=== PATIENT | male | born 1980 | race Caucasian/White ===

== ENCOUNTER 2017-07-04 15:32 | Emergency (ER) | payer OTHER ==
[2017-07-04 15:44] VITALS: BP 158/92
--- NOTE | 2017-07-04 15:53 | ED Physician Documentation ---
PD HPI LOWER EXT INJURY - Stated complaint Stated Complaint: R PINKY TOE INJ - Chief complaint Chief Complaint: Ext Problem - History obtained from History obtained from: Patient - History of Present Illness PD HPI LOW EXT INJURY LOCATION: Other (He was playing soccer with his son in the backyard, barefooted, his pinky toe when in a hole and it was deformed laterally. He reduced it himself but has persistent pain but declines pain medication.) Review of Systems Constitutional: reports: Reviewed and negative Cardiac: reports: Reviewed and negative Respiratory: reports: Reviewed and negative PD PAST MEDICAL HISTORY - Present Medications Home Medications: Ambulatory Orders Medication Instructions Recorded Confirmed No Known Home Medications [No 07/04/17 07/04/17 Known Home Medications] - Allergies Allergies/Adverse Reactions: Allergies Allergy/AdvReac Type Severity Reaction Status Date / Time Sulfa (Sulfonamide Allergy Unknown Verified 07/04/17 16:00 Antibiotics) PD ED PE NORMAL - Vitals Vital signs reviewed: Yes - General General: Alert and oriented X 3, No acute distress - Extremities Extremities: Other (Right pinky toe is quite tender and swollen but neurovascularly intact. There is no ecchymosis yet.) - Neuro Neuro: Alert and oriented X 3, Normal speech Results - Vitals Vitals: Vital Signs - 24 hr 07/04/17 15:38 Temperature 35.9 C L Heart Rate 83 Respiratory 16 Rate Blood Pressure 158/92 H O2 Saturation 98 Oxygen O2 Source Room air - Rads (name of study) R 5th toe Radiology: EMP read contemporaneously (prox phalanx frx) Departure - Departure Disposition: 01 Home, Self Care Clinical Impression: Fracture of proximal phalanx of toe of right foot Condition: Good Record reviewed to determine appropriate education?: Yes Instructions: ED Fx Toe Closed Comments: Av tape it and wear closed toed shoes as discussed, ibuprofen as needed for pain. Your blood pressure was elevated today on check into the emergency department. This does not mean that you have hypertension, it is a common phenomenon to come to the emergency department and have elevated blood pressure. I recommend that you see your primary care physician within the week to have it rechecked when you are feeling better. Discharge Date/Time: 07/04/17 16:20
--- NOTE | 2017-07-04 16:35 | XRAY Preliminary Report ---
Exam: XR TOE(S) RT IMPRESSION: Fracture fifth proximal phalanx. [facility] SITE ID: [id number]
--- NOTE | 2017-07-04 16:37 | XRAY Report ---
EXAM: RIGHT FIFTH TOE RADIOGRAPHY EXAM DATE: 07/04/2017 04:07 PM. CLINICAL HISTORY: Pain after injury while running today. COMPARISON: None. TECHNIQUE: 4 views. FINDINGS: Bones: Acute hairline oblique fracture proximal metadiaphysis fifth proximal phalanx. Joints: Normal. No subluxations. Soft Tissues: Edema at the fracture site. IMPRESSION: Fracture fifth proximal phalanx. [facility] Referring Provider Line: [phone] SITE ID: [id number]
== END 2017-07-04 16:20 | disposition home or self-care (01) ==
LOC: ED 15:32
DX: S92.511A Displaced fracture of proximal phalanx of right lesser toe(s), initial encounter for closed fracture (principal); W21.02XA Struck by soccer ball, initial encounter; Y93.66 Activity, soccer; Y92.096 Garden or yard of other non-institutional residence as the place of occurrence of the external cause; R03.0 Elevated blood-pressure reading, without diagnosis of hypertension
CPT/HCPCS: 73660; 99283

== ENCOUNTER 2018-05-13 16:05 | Emergency (ER) | payer OTHER ==
[2018-05-13 16:10] VITALS: BP 152/87
--- NOTE | 2018-05-13 17:10 | ED Physician Documentation ---
PD HPI UPPER EXT INJURY - Stated complaint Stated Complaint: LT FINGER PAIN - Chief complaint Chief Complaint: Ext Problem - History obtained from History obtained from: Patient - History of Present Illness Location: Left, Finger (middle finger dorsal PIP joint) Where injury occurred: Home Timing - onset: How many days ago (several) Timing - duration: Days (he had laceration to top of PIP joint and is now having redness and swelling locally without pain on etension of the finger.) Timing - details: Gradual onset Worsened by: Palpating Associated symptoms: No: Weakness, Numbness Similar symptoms before: Has not had sx before Review of Systems Constitutional: denies: Fever, Chills, Myalgias Nose: reports: Rhinorrhea / runny nose Throat: denies: Sore throat Cardiac: denies: Chest pain / pressure Skin: reports: Laceration (s) PD PAST MEDICAL HISTORY - Past Medical History Cardiovascular: None Respiratory: None Neuro: None Endocrine/Autoimmune: None GI: None : None HEENT: None Psych: None Musculoskeletal: None Derm: Eczema - Past Surgical History Past Surgical History: Yes - Present Medications Home Medications: Ambulatory Orders Medication Instructions Recorded Confirmed Doxycycline Hyclate 100 mg PO BID #20 capsule 05/13/18 Mupirocin 1 applic TP TID #15 g 05/13/18 - Allergies Allergies/Adverse Reactions: Allergies Allergy/AdvReac Type Severity Reaction Status Date / Time Sulfa (Sulfonamide Allergy Unknown Verified 05/13/18 16:10 Antibiotics) - Social History Does the pt smoke?: No Smoking Status: Never smoker Does the pt drink ETOH?: Yes ETOH Use: Beer Does the pt have substance abuse?: No - Immunizations Immunizations are current?: Yes - POLST Patient has POLST: No PD ED PE NORMAL - Vitals Vital signs reviewed: Yes - General General: Alert and oriented X 3, No acute distress, Well developed/nourished - Extremities Extremities: No deformity, No tenderness to palpate, Normal ROM s pain - Neuro Neuro: Alert and oriented X 3, No motor deficit, No sensory deficit, Other (dorsum of finger at [facility] got small puncture/laceration over the tendon herbie) Results - Vitals Vitals: Oxygen O2 Source Room air PD MEDICAL DECISION MAKING - ED course Complexity details: considered differential, d/w patient Departure - Departure Disposition: 01 Home, Self Care Clinical Impression: Infected finger laceration Qualifiers: Encounter type: initial encounter Qualified Code(s): S61.219A - Laceration without foreign body of unspecified finger without damage to nail, initial encounter Condition: Stable Record reviewed to determine appropriate education?: Yes Instructions: ED Staph Infec Abx Tx Only Follow-Up: [facility] [Provider Group] Prescriptions: Doxycycline Hyclate 100 mg PO BID #20 capsule Mupirocin 1 applic TP TID #15 g Comments: Soak the finger in warm water 2-3 times a day. Apply mupirocin topical antibiotic to the area. Ibuprofen or naproxen if needed for pains and inflammation. Use doxycycline oral antibiotic twice daily for a week. Recheck if not improved well over the next 2-3 days and return sooner if you have increasing redness or swelling or any extension of pain up into the back of the hand or forearm. Discharge Date/Time: 05/13/18 17:54
[2018-05-13] MEDS ORDERED: DOXYCYCLINE 100 MG TABLET PO STA (17:28)
[2018-05-13] MEDS ORDERED: NAPROXEN 250 MG TABLET PO STA (17:28)
== END 2018-05-13 17:54 | disposition home or self-care (01) ==
LOC: ED 16:05
DX: S61.213A Laceration without foreign body of left middle finger without damage to nail, initial encounter (principal); X58.XXXA Exposure to other specified factors, initial encounter; Y92.009 Unspecified place in unspecified non-institutional (private) residence as the place of occurrence of the external cause
CPT/HCPCS: 99283; A9270

== ENCOUNTER 2019-01-16 17:59 | Emergency (ER) | payer OTHER ==
[2019-01-16 18:10] VITALS: BP 156/111
--- NOTE | 2019-01-16 19:01 | XRAY Report ---
Reason: R shoulder pain s/p dropping a weight Procedure Date: 01/16/2019 Accession Number: [id number] / [id number] Procedure: XR - Shoulder 3 View RT CPT Code: Final Report FULL RESULT: EXAM: RIGHT SHOULDER RADIOGRAPHY EXAM DATE: 01/16/2019 06:25 PM. CLINICAL HISTORY: R shoulder pain s/p dropping a weight. COMPARISON: None. TECHNIQUE: 3 views. FINDINGS: Bones: Normal. No fracture or bone lesion. Joints: The glenohumeral and acromioclavicular joints are normal. Soft tissues: The visualized hemithorax is unremarkable. No soft tissue swelling. IMPRESSION: Negative right shoulder. [facility]
[2019-01-16] MEDS ORDERED: oxyCODONE 5 MG TABLET PO STA (19:45)
[2019-01-16] MEDS ORDERED: CYCLOBENZAPRINE 10 MG TABLET PO STA (19:46)
--- NOTE | 2019-01-16 19:48 | ED Physician Documentation ---
PD HPI UPPER EXT INJURY - Stated complaint Stated Complaint: RT SHOULDER INJ - Chief complaint Chief Complaint: Ext Problem - History obtained from History obtained from: Patient - History of Present Illness Location: Right, Shoulder Type of injury: Other (dropped a weight) Where injury occurred: Other (gym) Timing - onset: How many hours ago (several) Timing - duration: Hours Timing - details: Abrupt onset Pain level max: 8 Pain level now: 7 Improved by: Rest Worsened by: Moving, Palpating Associated symptoms: No: Weakness, Numbness, Tingling, Swelling Similar symptoms before: Has not had sx before Recently seen: Not recently seen - Additonal information Additional information: pt is right handed Review of Systems Constitutional: denies: Fever, Chills GI: denies: Nausea, Vomiting Skin: denies: Rash Musculoskeletal: denies: Neck pain, Back pain Neurologic: denies: Focal weakness, Numbness, Headache PD PAST MEDICAL HISTORY - Past Medical History Cardiovascular: None Respiratory: None Neuro: None Endocrine/Autoimmune: None GI: None : None HEENT: None Psych: None Musculoskeletal: None Derm: Eczema - Past Surgical History Past Surgical History: Yes - Present Medications Home Medications: Ambulatory Orders Medication Instructions Recorded Confirmed Doxycycline Hyclate 100 mg PO BID #20 capsule 05/13/18 Mupirocin 1 applic TP TID #15 g 05/13/18 Cyclobenzaprine [Flexeril] 10 mg PO TID PRN #20 tablet 01/16/19 Meloxicam [Mobic] 15 mg PO DAILY PRN #20 tablet 01/16/19 Oxycodone HCl/Acetaminophen 1 - 2 each PO Q6H PRN #14 tablet 01/16/19 [Percocet 5-325 mg Tablet] - Allergies Allergies/Adverse Reactions: Allergies Allergy/AdvReac Type Severity Reaction Status Date / Time Sulfa (Sulfonamide Allergy Unknown Verified 05/13/18 16:10 Antibiotics) - Social History Does the pt smoke?: No Smoking Status: Never smoker Does the pt drink ETOH?: Yes Does the pt have substance abuse?: No - Immunizations Immunizations are current?: Yes - POLST Patient has POLST: No PD ED PE NORMAL - Vitals Vital signs reviewed: Yes - General General: Alert and oriented X 3, No acute distress - HEENT HEENT: Moist mucous membranes - Derm Derm: Warm and dry - Extremities Extremities: Other (Limited range of motion of the right shoulder. Tender to palpation over the anterior aspect of the glenohumeral joint. Neurovascular intact including the axillary nerve. Pain especially with internal and external rotation. No deformity.) - Neuro Neuro: Alert and oriented X 3 Results - Vitals Vitals: Vital Signs - 24 hr 01/16/19 18:08 Temperature 36.9 C Heart Rate 88 Respiratory 18 Rate Blood Pressure 156/111 H O2 Saturation 98 Oxygen O2 Source Room air - Rads (name of study) R shoulder xray Radiology: Prelim report reviewed, EMP read contemporaneously, See rad report (normal) PD MEDICAL DECISION MAKING - ED course Complexity details: reviewed results, re-evaluated patient, considered differential, d/w patient ED course: Patient with right rotator cuff strain versus tear. Placed in a sling. We will have him obtain a shoulder brace for home. Will prescribe pain medication, NSAIDs and muscle relaxants. Patient counseled regarding signs and symptoms for which I believe and urgent re-evaluation would be necessary. Patient with good understanding of and agreement to plan and is comfortable going home at this time This document was made in part using voice recognition software. While efforts are made to proofread this document, sound alike and grammatical errors may o ccur. Departure - Departure Disposition: 01 Home, Self Care Clinical Impression: Rotator cuff strain Qualifiers: Encounter type: initial encounter Laterality: right Qualified Code(s): S46.011A - Strain of muscle(s) and tendon(s) of the rotator cuff of right shoulder, initial encounter Condition: Good Instructions: ED Tendinitis Rotator Cuff Follow-Up: LOUIE PAVON MD [Primary Care Provider] - Within 1 week Prescriptions: Cyclobenzaprine [Flexeril] 10 mg PO TID PRN #20 tablet PRN Reason: Spasms Meloxicam [Mobic] 15 mg PO DAILY PRN #20 tablet PRN Reason: pain Oxycodone HCl/Acetaminophen [Percocet 5-325 mg Tablet] 1 - 2 each PO Q6H PRN #14 tablet PRN Reason: pain Comments: Use the medications as needed. Return if you worsen. Follow-up with your doctor for further care. A shoulder brace also works well to help stabilize the joint. Your x-ray does not show any acute abnormalities. Continue to stretch the shoulder as shown tonight. Do not drink alcohol or drive while on narcotic pain medicine. Note that many narcotic pain relievers also contain tylenol/acetaminophen. Please ensure that your total dose of acetaminophen from all sources does not exceed 3 grams (3000mg) per day. You may constipated on this medication, take a stool softener such as "Colace" twice a day while you are on it. Also recommend a [id number] laxative such as senna or MiraLAX any day that you do not have a bowel movement. If you received narcotic pain medication in the emergency department, do not drive or operate machinery for the next 24 hours. Discharge Date/Time: 01/16/19 19:54
== END 2019-01-16 19:54 | disposition home or self-care (01) ==
LOC: ED 17:59
DX: S46.011A Strain of muscle(s) and tendon(s) of the rotator cuff of right shoulder, initial encounter (principal); X50.1XXA Overexertion from prolonged static or awkward postures, initial encounter; Y93.B3 Activity, free weights; Y92.39 Other specified sports and athletic area as the place of occurrence of the external cause
CPT/HCPCS: 73030; 99283; 99284; A9270